=== PATIENT | female | born 1930 | race Caucasian/White ===

== ENCOUNTER → 2017-12-11 | Outpatient (CLI) | payer OTHER ==
[~2017-12-11] MED LIST: ACET-24 PO; AMIO200T4 PO; AMLO2.5T PO; ASPEC81 PO; ATOR-22 PO; CALC1CHW2; LEVO50TA6 PO; MOMLX PO; MRLP17X PO; NTRGSL/4 UT; POTA-639 PO; RXC5 PO; TRIA0.5O TOP; VALS160T58 PO; WARF2.5T8 PO; [UNRECOGNIZED DRUG - OTHER] TOP; [UNRECOGNIZED DRUG - REMARK]
--- NOTE | 2017-12-11 10:01 | DIAGNOSTIC IMAGING REPORT ---
L PELVIS UNILATERAL HIP 1 VIEW CLINICAL HISTORY: F/U LEFT HIP FX trauma. Pain. Fracture. COMPARISON: None. DISCUSSION: Anatomic alignment post left hip pinning. Alignment is anatomic. No evidence for acetabular protrusion. Deformity lateral right iliac wing presumably secondary to prior bone grafting site procedure. There is no evidence for soft tissue swelling. IMPRESSION: Anatomic alignment post [left hip pinning The above report was generated using voice recognition software. It may contain grammatical, syntax or spelling errors. Electronically signed by: Kolton Tovar M.D. 12/11/2017 9:59 AM Dictated Date/Time: 12/11/2017 9:57 AM
--- NOTE | 2017-12-11 10:33 | DIAGNOSTIC IMAGING REPORT ---
L ANKLE MIN 3 VIEWS CLINICAL HISTORY: LEFT KNEE AND ANKLE PAIN pain COMPARISON: None. DISCUSSION: Small avulsion tip distal fibula. Moderate lateral soft tissue edema. Small old avulsion tip medial malleolus. The mortise is aligned anatomically. Subtalar joint is intact. There is a very small heel spur. IMPRESSION: 1. Small avulsion lateral malleolus.. 2. Small old avulsion tip medial malleolus. 3. Mild soft tissue edema.. 4. Small heel spur. The above report was generated using voice recognition software. It may contain grammatical, syntax or spelling errors. Electronically signed by: Kolton Tovar M.D. 12/11/2017 10:32 AM Dictated Date/Time: 12/11/2017 10:30 AM
--- NOTE | 2017-12-11 10:34 | DIAGNOSTIC IMAGING REPORT ---
L KNEE 3 VIEWS CLINICAL HISTORY: 87 years-old Female presenting with LEFT KNEE AND ANKLE PAIN. TECHNIQUE: Frontal, sunrise, and lateral views of the left knee were obtained. COMPARISON: 10/08/2005. 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 No patellar subluxation. No hardware malalignment. No periprosthetic fracture. No large knee joint effusion. Atherosclerosis. IMPRESSION: Total left knee arthroplasty without hardware complication. Electronically signed by: Gildardo Combs M.D. 12/11/2017 10:32 AM Dictated Date/Time: 12/11/2017 10:31 AM
== END | disposition home or self-care (01) ==
LOC: C.RDSM 09:29
PROVIDERS: ATTEND Physician Assistant
DX: M25.562 Pain in left knee (principal); M25.572 Pain in left ankle and joints of left foot; S72.002A Fracture of unspecified part of neck of left femur, initial encounter for closed fracture; X58.XXXA Exposure to other specified factors, initial encounter

== ENCOUNTER → 2018-01-11 | Outpatient (CLI) | payer OTHER ==
--- NOTE | 2018-01-11 14:16 | DIAGNOSTIC IMAGING REPORT ---
MRI LUMBAR SPINE W/O CONTRAST CLINICAL HISTORY: Low back pain with left leg radiculopathy. TECHNIQUE: Sagittal and axial T1, T2 and STIR images were obtained. COMPARISON STUDY: Conventional radiographic study performed October 2005 OBSERVATIONS: The vertebral bodies and posterior elements appear intact. There is no abnormal bony signal present to suggest a marrow replacement process. L1-2: No disc protrusions or extrusions. No evidence of spinal canal or neural foraminal compromise. L2-3: There is a circumferential disc bulge. There is facet joint arthropathy. There is minor spinal canal narrowing. There is mild bilateral foraminal narrowing. L3-4: There is a grade 1 spondylolisthesis of L3 on L4. There is a circumferential disc bulge. There is facet joint arthropathy. There is moderate spinal stenosis. There is mild bilateral foraminal narrowing. L4-5: There is a circumferential disc bulge. There is facet joint arthropathy. There is moderate spinal stenosis. There is right-sided foraminal narrowing. L5-S1: There is a mild disc bulge. There is no significant spinal or foraminal stenosis. The conus medullaris and cauda equina appear normal. IMPRESSION: Moderate multilevel spondylitic changes with moderate spinal stenosis most severe at the L3-4 and L4-5 levels. Electronically signed by: Luan Kelsey M.D. 01/11/2018 2:14 PM Dictated Date/Time: 01/11/2018 2:11 PM
== END | disposition home or self-care (01) ==
LOC: C.MRI 12:41
PROVIDERS: ATTEND Physical Medicine & Rehabilitation Sports Medicine
DX: M76.52 Patellar tendinitis, left knee (principal); Z87.81 Personal history of (healed) traumatic fracture